=== PATIENT | female | born 1990 | race Asian ===

== ENCOUNTER 2018-05-24 09:22 | Inpatient (IN) | payer OTHER ==
[2018-05-24] MEDS ORDERED: CARBOPROST 250 MCG INJ IM ×2 (10:00→18:30)
[2018-05-24] MEDS ORDERED: MISOPROSTOL 200 MCG TAB PR ×2 (10:00→18:30)
[2018-05-24] MEDS ORDERED: METHYLERGONOVINE 0.2 MG INJ IM ×2 (10:00→18:30)
[2018-05-24] MEDS ORDERED: OXYTOCIN 30 UNITS/LR 500 ML IV ×3 (10:00→18:30)
[2018-05-24] MEDS: LACTATED RINGER'S 1,000 ML IV ×3 (10:38→12:49)
[2018-05-24 10:56] LABS: ADD MAN DIFF? NO
[2018-05-24 11:02] LABS: WHITE BLOOD COUNT 9.8 10^3/ul (4.8-10.8)
[2018-05-24 11:02] LABS: BASOPHILS % 0.2 % (0.0-2.0); EOSINOPHILS # 0.1 10^3/ul (0.0-0.5); HEMATOCRIT 37.5 % (37.0-47.0); HEMOGLOBIN 12.8 g/dl (12.0-16.0); IMMATURE GRANS #M 0.07 10^3/ul; IMMATURE GRANS % (M) 0.7 %; LYMPHOCYTES # 2.1 10^3/ul (0.8-2.9); LYMPHOCYTES % 21.2 % (15.0-51.0); MEAN CORPUSCULAR HEMOGLOBIN 29.8 pg (29.0-33.0); MEAN CORPUSCULAR HGB CONC 34.1 g/dl (32.0-37.0); MEAN CORPUSCULAR VOLUME 87.2 fl (82.0-101.0); MEAN PLATELET VOLUME 11.2 fl (7.4-10.4); MONOCYTE # 0.7 10^3/ul (0.3-0.9); MONOCYTES % 6.7 % (0.0-11.0); NEUTROPHIL # 6.9 10^3/ul (1.6-7.5); NEUTROPHILS % 70.2 % (39.0-77.0); PLATELET COUNT 245 10^3/UL (140-415); RED CELL DISTRIBUTION WIDTH 14.8 % (11.5-14.5)
[2018-05-24 11:25] LABS: INR 0.98; PROTIME 13.1 Sec (11.9-14.9)
[2018-05-24 11:26] LABS: PARTIAL THROMBOPLASTIN TIME 27.4 Sec (25.0-35.0)
[2018-05-24 11:32] LABS: GLUCOSE 114 mg/dl (70-220)
[2018-05-24 11:59] LABS: HEPATITIS B SURFACE ANTIGEN NEGATIVE (NEGATIVE)
[2018-05-24] MEDS ORDERED: CITRIC ACID/SODIUM CITRATE 15 ML CUP (12:13)
[2018-05-24] MEDS ORDERED: FAMOTIDINE 20 MG INJ (12:14)
[2018-05-24] MEDS ORDERED: METOCLOPRAMIDE 10 MG INJ (12:14)
[2018-05-24] MEDS ORDERED: HYDROmorphONE 1 MG/5 ML IV SYRINGE IV ×3 (12:30)
[2018-05-24] MEDS ORDERED: KETOROLAC 30 MG INJ IV (12:30)
[2018-05-24] MEDS ORDERED: FENTAnyl 50 MCG/ML VIAL IV (12:30)
[2018-05-24] MEDS ORDERED: PROCHLORPERAZINE 10 MG INJ IV (12:30)
[2018-05-24] MEDS ORDERED: MEPERIDINE 25 MG INJ IV (12:30)
[2018-05-24] MEDS ORDERED: ONDANSETRON 4 MG INJ IV ×2 (12:30→14:30)
[2018-05-24] MEDS ORDERED: DIPHENHYDRAMINE 50 MG INJ IV ×2 (12:30→14:30)
[2018-05-24] MEDS: METOCLOPRAMIDE 10 MG INJ IV (12:55)
[2018-05-24] MEDS: CITRIC ACID/SODIUM CITRATE 15 ML CUP PO (12:55)
[2018-05-24] MEDS: FAMOTIDINE 20 MG INJ IV (12:55)
[2018-05-24] MEDS ORDERED: morphine SULFATE/PF (10 MG/10 ML) INJ (13:28)
[2018-05-24] MEDS ORDERED: BUPIVACAINE 0.75%/DEXT (SPINAL) 2 ML INJ (13:29)
[2018-05-24] MEDS ORDERED: PHENYLephrine (100 MCG/ML) 5ML SYG ×2 (13:42→14:02)
[2018-05-24] MEDS ORDERED: EPHEDrine 25 MG/5 ML SYG (14:03)
[2018-05-24] MEDS: CEFAZOLIN 2 GM/50 ML (PMX) 50 ML IV (14:08)
[2018-05-24] MEDS ORDERED: NALOXONE (0.4 MG/ML) INJ IV (14:30)
[2018-05-24] MEDS ORDERED: HYDROmorphONE 0.5 MG/0.5 ML SYG IV (14:30)
[2018-05-24] MEDS ORDERED: ZOLPIDEM 5 MG TAB PO (14:30)
[2018-05-24] MEDS ORDERED: NALBUPHINE HCL (10 MG/1 ML) INJ IV (14:30)
[2018-05-24] MEDS: OXYTOCIN 30 UNITS/LR 500 ML IV ×2 (17:08→21:14)
[2018-05-24] MEDS ORDERED: HYDROCODONE/APAP (5/325) TAB PO ×2 (18:30)
[2018-05-24] MEDS: LANOLIN 7 GM TUBE TOP (21:10)
[2018-05-24 21:52] LABS: RAPID PLASMA REAGIN NONREACTIVE (NR)
[2018-05-24] MEDS: CEFAZOLIN 1 GM/50 ML (PMX) 50 ML IVPB (21:52)
[2018-05-25] MEDS: LACTATED RINGER'S 1,000 ML IV ×2 (02:00→10:00)
[2018-05-25] MEDS: OXYTOCIN 30 UNITS/LR 500 ML IV ×5 (02:10→14:10)
[2018-05-25] MEDS: HYDROmorphONE 0.5 MG/0.5 ML SYG IV (04:25)
[2018-05-25 08:33] LABS: ADD MAN DIFF? NO
[2018-05-25] MEDS: SENNA/DOCUSATE NA (8.6MG/50MG) TAB PO ×2 (08:36→21:29)
[2018-05-25] MEDS: KETOROLAC 30 MG INJ IV (08:36)
[2018-05-25 08:38] LABS: WHITE BLOOD COUNT 11.1 10^3/ul (4.8-10.8)
[2018-05-25 08:38] LABS: BASOPHILS % 0.1 % (0.0-2.0); EOSINOPHILS # 0.1 10^3/ul (0.0-0.5); EOSINOPHILS % 0.5 % (0.0-7.0); HEMATOCRIT 27.2 % (37.0-47.0); HEMOGLOBIN 9.5 g/dl (12.0-16.0); IMMATURE GRANS #M 0.05 10^3/ul; IMMATURE GRANS % (M) 0.5 %; LYMPHOCYTES # 1.8 10^3/ul (0.8-2.9); LYMPHOCYTES % 16.3 % (15.0-51.0); MEAN CORPUSCULAR HEMOGLOBIN 30.3 pg (29.0-33.0); MEAN CORPUSCULAR HGB CONC 34.9 g/dl (32.0-37.0); MEAN CORPUSCULAR VOLUME 86.6 fl (82.0-101.0); MONOCYTE # 0.8 10^3/ul (0.3-0.9); MONOCYTES % 6.8 % (0.0-11.0); NEUTROPHIL # 8.4 10^3/ul (1.6-7.5); NEUTROPHILS % 75.8 % (39.0-77.0); PLATELET COUNT 209 10^3/UL (140-415); RED BLOOD COUNT 3.14 10^6/ul (4.20-5.40); RED CELL DISTRIBUTION WIDTH 14.8 % (11.5-14.5)
[2018-05-25] MEDS: OXYCODONE/ACETAMINOPHEN (5/325) TAB PO (16:03)
[2018-05-25] MEDS: IBUPROFEN 600 MG TAB PO ×2 (18:58→23:52)
[2018-05-26] MEDS: IBUPROFEN 600 MG TAB PO ×4 (05:28→23:58)
[2018-05-26 08:24] LABS: ADD MAN DIFF? NO
[2018-05-26 08:28] LABS: BASOPHILS % 0.2 % (0.0-2.0); EOSINOPHILS # 0.2 10^3/ul (0.0-0.5); EOSINOPHILS % 1.3 % (0.0-7.0); HEMOGLOBIN 8.9 g/dl (12.0-16.0); LYMPHOCYTES # 1.9 10^3/ul (0.8-2.9); LYMPHOCYTES % 15.8 % (15.0-51.0); MEAN CORPUSCULAR HEMOGLOBIN 29.8 pg (29.0-33.0); MEAN CORPUSCULAR HGB CONC 34.2 g/dl (32.0-37.0); MEAN PLATELET VOLUME 10.8 fl (7.4-10.4); MONOCYTE # 0.9 10^3/ul (0.3-0.9); MONOCYTES % 7.7 % (0.0-11.0); NEUTROPHIL # 8.9 10^3/ul (1.6-7.5); NEUTROPHILS % 74.3 % (39.0-77.0); PLATELET COUNT 238 10^3/UL (140-415); RED BLOOD COUNT 2.99 10^6/ul (4.20-5.40); RED CELL DISTRIBUTION WIDTH 14.8 % (11.5-14.5)
[2018-05-26 08:28] LABS: WHITE BLOOD COUNT 11.9 10^3/ul (4.8-10.8)
[2018-05-26] MEDS: SENNA/DOCUSATE NA (8.6MG/50MG) TAB PO ×2 (08:57→20:59)
[2018-05-26] MEDS: NA PHOSPHATE/BIPHOS 133 ML ENEMA PR (10:00)
[2018-05-26] MEDS: OXYCODONE/ACETAMINOPHEN (5/325) TAB PO (22:44)
[2018-05-27] MEDS: IBUPROFEN 600 MG TAB PO ×2 (06:00→11:36)
[2018-05-27] MEDS: DIPHTH/TET/ACEL PERTUSS (ADULT) 0.5 ML VIAL IM* (09:00)
[2018-05-27] MEDS: SENNA/DOCUSATE NA (8.6MG/50MG) TAB PO (09:00)
[2018-05-27] MEDS: OXYCODONE/ACETAMINOPHEN (5/325) TAB PO (13:39)
== END 2018-05-27 18:24 | disposition home or self-care (01) | DRG 766 ==
LOC: L-D 09:22 → PP1 05-25 08:34 → L-D 13:25 → PP1 18:19
PROVIDERS: Obstetrics & Gynecology
PROC: 10D00Z1 Extraction of Products of Conception, Low, Open Approach (ICD-10-PCS; principal; 2018-05-24 12:30)
DX: O34.219 Maternal care for unspecified type scar from previous cesarean delivery (principal); Z3A.39 39 weeks gestation of pregnancy; Z37.0 Single live birth
CPT/HCPCS: 82947; 85025; 85610; 85730; 86592; 86850; 86900; 86901; 87340; 99464